=== PATIENT | male | born 1970 | race Caucasian/White ===

== ENCOUNTER 2020-03-06 15:37 | Emergency (ER) | payer OTHER ==
[~2020-03-06] VITALS: Ht 172.7 cm; Wt 102.1 kg
[~2020-03-06 15:37] MED LIST: ALLEGRA180 MG PO; DOXYCYCLINE MO100 MG PO; Effexor25 MG PO; PHENERGAN W/DM120 ML PO; VENLAFAXINE225 MG PO
[2020-03-06 15:52] VITALS: BP 154/87
== END 2020-03-06 18:46 | disposition home or self-care (01) ==
LOC: ED 15:37
DX: K59.00 Constipation, unspecified (principal); Z88.0 Allergy status to penicillin